=== PATIENT | male | born 1995 | race Asian ===

== ENCOUNTER 2017-04-21 11:09 | Emergency (ER) | payer OTHER ==
[~2017-04-21] VITALS: Ht 177.8 cm; Wt 68.9 kg
== END 2017-04-21 12:25 | disposition home or self-care (01) ==
LOC: ED 11:09
DX: J02.9 Acute pharyngitis, unspecified (principal)
CPT/HCPCS: 99281

== ENCOUNTER 2017-12-05 12:24 | Emergency (ER) | payer OTHER ==
[~2017-12-05] VITALS: Ht 180.3 cm; Wt 65.8 kg
[2017-12-05 16:15] VITALS: BP 108/67; TEMP 98
== END 2017-12-05 16:15 | disposition home or self-care (01) ==
LOC: ED 12:24
DX: J02.9 Acute pharyngitis, unspecified (principal)
CPT/HCPCS: 87081; 87880; 99282

== ENCOUNTER 2019-02-27 13:19 | Emergency (ER) | payer OTHER ==
[~2019-02-27] VITALS: Ht 180.3 cm; Wt 63.5 kg
[2019-02-27 14:05] VITALS: BP 108/67; TEMP 99.5
== END 2019-02-27 14:05 | disposition home or self-care (01) ==
LOC: ED 13:19
DX: J03.00 Acute streptococcal tonsillitis, unspecified (principal)
CPT/HCPCS: 87651; 99282

== ENCOUNTER 2019-11-22 03:01 | Emergency (ER) | payer BC ==
[~2019-11-22] VITALS: Ht 180.3 cm; Wt 62.6 kg
[2019-11-22 04:02] VITALS: BP 120/72; TEMP 98.6
== END 2019-11-22 04:03 | disposition home or self-care (01) ==
LOC: ED 03:01
DX: K02.9 Dental caries, unspecified (principal); K04.7 Periapical abscess without sinus; F17.290 Nicotine dependence, other tobacco product, uncomplicated
CPT/HCPCS: 96372; 99283; J1885

== ENCOUNTER 2020-11-02 12:59 | Emergency (ER) | payer OTHER ==
[~2020-11-02] VITALS: Ht 180.3 cm; Wt 67.1 kg
[2020-11-02 13:05] VITALS: BP 126/54; TEMP 99.1
[2020-11-02 14:24] LABS: PLATELET COUNT 274 K/uL (142-355)
[2020-11-02 14:34] LABS: POTASSIUM 3.8 mmol/L (3.6-5.2)
== END 2020-11-02 15:39 | disposition home or self-care (01) ==
LOC: ED 12:59
PROVIDERS: Family Medicine
DX: R10.33 Periumbilical pain (principal)
CPT/HCPCS: 80053; 81000; 82150; 83690; 85027; 99283

== ENCOUNTER 2021-12-18 11:37 | Emergency (ER) | payer OTHER ==
[~2021-12-18] VITALS: Ht 180.3 cm; Wt 65.8 kg
[2021-12-18 11:46] VITALS: TEMP 97.6
[2021-12-18 12:00] VITALS: BP 122/68
== END 2021-12-18 12:00 | disposition home or self-care (01) ==
LOC: ED 11:37
DX: M25.571 Pain in right ankle and joints of right foot (principal); M25.562 Pain in left knee; M25.542 Pain in joints of left hand
CPT/HCPCS: 99281

== ENCOUNTER 2021-12-22 12:45 | Emergency (ER) | payer OTHER ==
[~2021-12-22] VITALS: Ht 180.3 cm; Wt 63.5 kg
[2021-12-22 13:03] VITALS: TEMP 97.3
[2021-12-22 13:57] VITALS: BP 118/72
== END 2021-12-22 14:02 | disposition home or self-care (01) ==
LOC: ED 12:45
DX: M25.462 Effusion, left knee (principal); R29.898 Other symptoms and signs involving the musculoskeletal system
CPT/HCPCS: 99282

== ENCOUNTER 2022-01-09 22:00 | Emergency (ER) | payer OTHER ==
[~2022-01-09] VITALS: Ht 180.3 cm; Wt 63.5 kg
[2022-01-09 22:40] VITALS: BP 115/75; TEMP 98.7
== END 2022-01-09 23:30 | disposition home or self-care (01) ==
LOC: ED 22:00
PROC: 2W3CX1Z Immobilization of Right Lower Arm using Splint (ICD-10-PCS; principal; 2022-01-09)
DX: M67.833 Other specified disorders of tendon, right wrist (principal)
CPT/HCPCS: 99283

== ENCOUNTER 2022-01-11 19:41 | Emergency (ER) | payer OTHER ==
[~2022-01-11] VITALS: Ht 180.3 cm; Wt 65.8 kg
[2022-01-11 19:46] VITALS: BP 114/56; TEMP 99.5
== END 2022-01-11 20:30 | disposition home or self-care (01) ==
LOC: ED 19:41
DX: M65.88 Other synovitis and tenosynovitis, other site (principal)
CPT/HCPCS: 99282

== ENCOUNTER 2022-02-16 16:29 | Emergency (ER) | payer OTHER ==
[~2022-02-16] VITALS: Ht 180.3 cm; Wt 65.8 kg
[2022-02-16 16:37] VITALS: TEMP 98.7
[2022-02-16 17:25] VITALS: BP 112/72
== END 2022-02-16 17:32 | disposition home or self-care (01) ==
LOC: ED 16:29
DX: J02.0 Streptococcal pharyngitis (principal); Z20.822 Contact with and (suspected) exposure to COVID-19
CPT/HCPCS: 87635; 87651; 99283; U0003

== ENCOUNTER 2022-09-13 17:56 | Emergency (ER) | payer OTHER ==
[~2022-09-13] VITALS: Ht 177.8 cm; Wt 65.8 kg
[2022-09-13 18:35] VITALS: BP 106/59; TEMP 100.6
== END 2022-09-13 18:39 | disposition home or self-care (01) ==
LOC: ED 17:56
DX: J20.9 Acute bronchitis, unspecified (principal); Z20.822 Contact with and (suspected) exposure to COVID-19
CPT/HCPCS: 87502; 87635; 87651; 99283; U0001